=== PATIENT | female | born 1980 | race Caucasian/White ===

== ENCOUNTER 2016-08-08 06:58 | Observation (INO) | payer BC, MEDICAID ==
[~2016-08-08 06:58] MED LIST: Lidocaine 1%/Sod Bicarbonate in NS 8.4% 1 ML Syringe PRN; Sodium Chloride 0.9% 10 ML Syringe FLUSH PRN
--- NOTE | 2016-08-08 07:18 | PCM.PREANE ---
Preanesthetic Assessment - Anesthesia/Transfusion/Family Hx Anesthesia History: Prior Anesthesia Reaction (nausea and vomiting) Family History of Anesthesia Reaction: Yes (Dad has seizures) Transfusion History: No Prior Transfusion(s) - Review of Systems General: No Symptoms Pulmonary: No Symptoms Cardiovascular: No Symptoms Gastrointestinal: No symptoms Neurological: No Symptoms Other: Reports: None - Physical Assessment NPO Status Date: 08/07/16 NPO Status Time: 00:00 Pulse: 73 O2 Sat by Pulse Oximetry: 98 Respiratory Rate: 16 Blood Pressure: 131/90 Temperature: 36.5 C Height: 1.73 m Weight: 85.638 kg ASA Class: 2 Mental Status: Alert & Oriented x3 Airway Class: Mallampati = 1 Dentition: Reports: Normal Dentition Thyro-Mental Finger Breadths: 3 Mouth Opening Finger Breadths: 3 ROM/Head Extension: Full Lungs: Clear to auscultation, Normal respiratory effort Cardiovascular: Regular Rate, Regular Rhythm, No Murmurs - Allergies Allergies/Adverse Reactions: Allergies Allergy/AdvReac Type Severity Reaction Status Date / Time animal dander Allergy allergic Verified 08/07/16 16:08 rhinitis codeine Allergy Rash Verified 08/07/16 15:41 kiwi Allergy asthma Verified 08/07/16 15:41 exacerbation morphine AdvReac Vomiting Verified 08/07/16 16:08 - Anesthesia Plan Pre-Op Medication Ordered: None - Acknowledgements Anesthesia Type Planned: General Anesthesia Pt an Appropriate Candidate for the Planned Anesthesia: Yes Alternatives and Risks of Anesthesia Discussed w Pt/Guardian: Yes Pt/Guardian Understands and Agrees with Anesthesia Plan: Yes PreAnesthesia Questionnaire HEENT History: Reports: Allergic rhinitis, Impaired vision Cardiovascular History: Reports: None Respiratory History: Reports: Asthma Gastrointestinal History: Reports: Other (see below) Other Gastrointestinal History: stomach ulcer Genitourinary History: Reports: Other (see below) [employer] History: Reports: , Other (see below) Other OB/BYN History: bacterial vaginosis, hypermenorrhea, dysmenorrhea, irregular menses Musculoskeletal History: Reports: None Neurological History: Reports: None Psychiatric History: Reports: Anxiety, Depression Endocrine/Metabolic History: Reports: None Hematologic History: Reports: None Immunologic History: Reports: None Oncologic (Cancer) History: Reports: None Dermatologic History: Reports: None - Past Surgical History Head Surgeries/Procedures: Reports: None GI Surgical History: Reports: Appendectomy, Cholecystectomy Female Surgical History: Reports: Tubal ligation - SUBSTANCE USE Smoking Status *Q: Never Smoker Tobacco Use Within Last Twelve Months: No Second Hand Smoke Exposure: No Days Per Week of Alcohol Use: 0 Number of Drinks Per Day: 0 Total Drinks Per Week: 0 Recreational Drug Use History: No - HOME MEDS Home Medications: Home Meds ALPRAZolam [Xanax] 0.25 mg PO Q6H PRN 08/07/16 [History] DULoxetine [Cymbalta] 60 mg PO DAILY 08/07/16 [History] Ferrous Sulfate [Iron] 325 mg PO DAILY 08/07/16 [History] Montelukast [Singulair] 10 mg PO DAILY 08/07/16 [History] Pantoprazole Sodium [Protonix] 40 mg PO DAILY 08/07/16 [History] - CURRENT (IN HOUSE) MEDS Current Meds: Current Medications Lactated Ringer's (Ringers, Lactated) 1,000 mls @ 125 mls/hr IV ASDIRECTED RUDDY Stop: 08/08/16 23:00 Lidocaine/Sodium Bicarbonate (Buffered Lidocaine 1% In Ns 8.4%) 0.25 ml .XX ONETIME PRN PRN Reason: Prior to IV Start Stop: 08/08/16 18:00 Sodium Chloride (Saline Flush) 10 ml FLUSH ASDIRECTED PRN PRN Reason: Keep Vein Open Stop: 08/08/16 18:00
[2016-08-08] MEDS ORDERED: Scopolamine 1.5 MG Transdermal Patch TOP ONE (07:30)
[2016-08-08] MEDS: Lactated Ringers 1,000 ML IV SCH ×5 (07:33→23:39)
[2016-08-08] MEDS ORDERED: fentaNYL 250 MCG/5 ML SDV ONE ×3 (07:40→08:42)
[2016-08-08] MEDS ORDERED: Rocuronium 50 MG/5 ML Vial ONE (07:40)
[2016-08-08] MEDS ORDERED: Ondansetron 4 MG/2 ML SDV ONE (07:40)
[2016-08-08] MEDS ORDERED: Midazolam 1 MG/ML 2 ML SDV ONE (07:40)
[2016-08-08] MEDS ORDERED: Propofol 200 MG/20 ML SDV ONE (07:40)
[2016-08-08] MEDS ORDERED: diphenhydrAMINE 50 MG/ML SDV ONE (07:41)
[2016-08-08] MEDS ORDERED: Dexamethasone 4 MG/ML 5 ML MDV ONE (07:41)
[2016-08-08] MEDS ORDERED: Lidocaine 1% 4 ML ONE (07:41)
[2016-08-08] MEDS: Sodium Chloride 0.9% 50 ML SDV ONE ×2 (08:08→08:14)
[2016-08-08] MEDS: Lidocaine 1% with EPINEPHrine 1:100,000 20 ML MDV ONE ×2 (08:08→08:14)
[2016-08-08] MEDS ORDERED: Lactated Ringers 1,000 ML ONE (08:35)
--- NOTE | 2016-08-08 09:03 | PCM.OPNOTE ---
- General Post-Op/Procedure Note Date of Surgery/Procedure: 08/08/16 Operative Procedure(s): Total vaginal hysterectomy, bilateral salpingectomy ( ovaries not removed.), [id number] Pre Op Diagnosis: Hypermenorrhea, irregular menses, dysmenorrhea, pelvic pain Post-Op Diagnosis: Same Anesthesia Technique: General ET tube Primary Surgeon: Eloy Quesada Secondary Surgeon: Michael Allan Anesthesia Provider: Humphrey Hart Fluid Replacement, Intraop: 1,800 EBL in mLs: 125 Drain/Tube Comments:: None Complications: None Condition: Good Free Text/Narrative:: Patient was transported to operating room #2, and placed under general anesthesia in the low dorsal lithotomy position. Prepared and draped in sterile fashion. Examination under anesthesia revealed. No adnexal masses. Normal-size uterus upper limits of normal size. Timeout performed confirming name, date of , and procedures total vaginal hysterectomy, bilateral salpingectomy, removal of one or both ovaries, possible total, hysterectomy, bilateral salpingectomy, and removal of one or both ovaries.). Total vaginal hysterectomy, bilateral salpingectomy, performed. The patient having been draped and prepared and sterile fashion. SCDs in place functioning. Prior surgery and Ancef 2 g given as previously prior surgery. Milliliters of 0.5% lidocaine injected with epinephrine. A circumferential area around the cervix. Circumscribing the cervix. Posterior colpotomy performed without difficulty. Crossclamping with LigaSure, activating, incising, the uterosacral ligaments, and quarterly was were transected. Proceeding cephalad. Crossclamping, activating, incising, until the entered bluntly was able to be performed and crossclamping. One additional time to complete transection. The uterine vessels. The uterus was inverted posteriorly, crossclamped across the triple pedicle bilaterally, and removed. The pedicle was suture ligated with #1 Vicryl bilaterally. Nicole fixation type suture. The remaining portions of the distal portion of fallopian tube were removed bilaterally by crossclamping, activating LigaSure, and incising, all tissue sent to pathology for tissue evaluation. Sponge, needle, practice with sharp count correct, x2 in the pursestring suture placed on the peritoneal cavity, beginning at 2:00, and proceeding clockwise fashion. Using 0 Monocryl. The pedicles were incorporated extraperitoneally the anterior, posterior vaginal cuff was enclosed running, locking suture of 0 Monocryl. Patient transported post anesthesia care unit in satisfactory condition. No blood transfusion to required
[2016-08-08] MEDS ORDERED: Flumazenil 0.1 MG/ML 5 ML MDV ONE (09:46)
[2016-08-08] MEDS ORDERED: Naloxone 0.4 MG/ML SDV ONE (09:57)
--- NOTE | 2016-08-08 10:10 | PCM.POSTAN ---
POST ANESTHESIA ASSESSMENT - MENTAL STATUS Mental Status: alert, oriented - VITAL SIGNS Pulse Rate: 108 SaO2: 97 Resp Rate: 16 Blood Pressure: 147/94 Temperature: 36.7 C - RESPIRATORY Respiratory Status: respiratory rate WNL, airway patent, O2 saturation stable - CARDIOVASCULAR CV Status: pulse rate WNL, blood pressure stable - GASTROINTESTINAL GI Status: no symptoms - PAIN Pain Score: 0 - POST OP HYDRATION Hydration Status: adequate & stable - OBSERVATIONS Free Text/Narrative:: no anesthesia complications noted
[2016-08-08] MEDS ORDERED: Acetaminophen/oxyCODONE 325-5 MG Tab PO PRN (10:22)
[2016-08-08] MEDS ORDERED: Metoclopramide 10 MG/2 ML SDV IVPUSH ONE (11:15)
[2016-08-08] MEDS ORDERED: Ondansetron 4 MG/2 ML SDV IVPUSH ONE (11:15)
[2016-08-08] MEDS ORDERED: Albuterol 0.083% 2.5 MG/3 ML Neb Soln NEB ONE (11:30)
[2016-08-08] MEDS ORDERED: Ketorolac 30 MG/ML SDV IVPUSH SCH (14:00)
--- NOTE | 2016-08-08 14:03 | PCM.SN ---
- Free Text/Narrative Note: Patient will be placed on observation status because of postoperative hypoxia with sleeping . Continuous pulse oximetry, and also because of acute urinary retention, unable to empty. Bladder completely with bladder scan, showing or 200 mL of urine in the bladder. After completion of voiding will begin Urecholine 10 mg by mouth hourly for total of 5 doses and then by mouth every 6 hours. After that. Patient having noted. Vaginal bleeding. No significant abdominal pain. I talked with and patient and they are in agreement. Vital signs are stable. CBC in a.m.
[2016-08-08] MEDS ORDERED: Ondansetron 4 MG Tab.DIS PO PRN (14:42)
[2016-08-08] MEDS: Acetaminophen/oxyCODONE 325-5 MG Tab PO PRN ×2 (15:48→21:13)
--- NOTE | 2016-08-08 16:17 | PCM.SN ---
- Free Text/Narrative Note: Awake hypoxia better nd weening O2, voided with 148 ml residual. Moving to [facility] from L[facility] PP due to need for PP rooms. Stable, voiced no concerns.
[2016-08-08] MEDS ORDERED: ALPRAZolam 0.25 MG Tab PO PRN (19:06)
[2016-08-09] MEDS: Acetaminophen/oxyCODONE 325-5 MG Tab PO PRN ×2 (01:27→06:29)
[2016-08-09] MEDS ORDERED: Pantoprazole 40 MG Tab.CR PO SCH (07:00)
[2016-08-09] MEDS: Lactated Ringers 1,000 ML IV SCH (07:41)
--- NOTE | 2016-08-09 07:57 | PCM.DCSUM1 ---
Discharge Summary - Hospital Course Free Text/Narrative:: [facility] Post-Op/Procedure Note Patient Name: RENAN BOOTH Date of : 82 Patient Status: Observation Attending Provider: Eloy Quesada Date: 08/08/16 08:59 Initialization Date: 08/08/16 08:59 - General Post-Op/Procedure Note Date of Surgery/Procedure: 08/08/16 Operative Procedure(s): Total vaginal hysterectomy, bilateral salpingectomy ( ovaries not removed.), [id number] Pre Op Diagnosis: Hypermenorrhea, irregular menses, dysmenorrhea, pelvic pain Post-Op Diagnosis: Same Anesthesia Technique: General ET tube Primary Surgeon: Eloy Quesada Secondary Surgeon: Michael Allan Anesthesia Provider: Humphrey Hart Fluid Replacement, Intraop: 1,800 EBL in mLs: 125 Drain/Tube Comments:: None Complications: None Condition: Good Free Text/Narrative:: Patient was transported to operating room #2, and placed under general anesthesia in the low dorsal lithotomy position. Prepared and draped in sterile fashion. Examination under anesthesia revealed. No adnexal masses. Normal-size uterus upper limits of normal size. Timeout performed confirming name, date of , and procedures total vaginal hysterectomy, bilateral salpingectomy, removal of one or both ovaries, possible total, hysterectomy, bilateral salpingectomy, and removal of one or both ovaries.). Total vaginal hysterectomy, bilateral salpingectomy, performed. The patient having been draped and prepared and sterile fashion. SCDs in place functioning. Prior surgery and Ancef 2 g given as previously prior surgery. Milliliters of 0.5% lidocaine injected with epinephrine. A circumferential area around the cervix. Circumscribing the cervix. Posterior colpotomy performed without difficulty. Crossclamping with LigaSure, activating, incising, the uterosacral ligaments, and quarterly was were transected. Proceeding cephalad. Crossclamping, activating, incising, until the entered bluntly was able to be performed and crossclamping. One additional time to complete transection. The uterine vessels. The uterus was inverted posteriorly, crossclamped across the triple pedicle bilaterally, and removed. The pedicle was suture ligated with #1 Vicryl bilaterally. Nicole fixation type suture. The remaining portions of the distal portion of fallopian tube were removed bilaterally by crossclamping, activating LigaSure, and incising, all tissue sent to pathology for tissue evaluation. Sponge, needle, practice with sharp count correct, x2 in the pursestring suture placed on the peritoneal cavity, beginning at 2:00, and proceeding clockwise fashion. Using 0 Monocryl. The pedicles were incorporated extraperitoneally the anterior, posterior vaginal cuff was enclosed running, locking suture of 0 Monocryl. Patient transported post anesthesia care unit in satisfactory condition. No blood transfusion to required Patient referred to observation due to hypoxia when sleeping and inability to ween off O2 in PACU, and acute postop urinary retention. Both resolved overnight , patient weened off O2 and voiding without difficulty. HPI Initial Comments: [facility] Post-Op/Procedure Note Patient Name: RENAN BOOTH Date of : 82 Patient Status: Observation Attending Provider: Eloy Quesada Date: 08/08/16 08:59 Initialization Date: 08/08/16 08:59 - General Post-Op/Procedure Note Date of Surgery/Procedure: 08/08/16 Operative Procedure(s): Total vaginal hysterectomy, bilateral salpingectomy ( ovaries not removed.), [id number] Pre Op Diagnosis: Hypermenorrhea, irregular menses, dysmenorrhea, pelvic pain Post-Op Diagnosis: Same Anesthesia Technique: General ET tube Primary Surgeon: Eloy Quesada Secondary Surgeon: Michael Allan Anesthesia Provider: Humphrey Hart Fluid Replacement, Intraop: 1,800 EBL in mLs: 125 Drain/Tube Comments:: None Complications: None Condition: Good Free Text/Narrative:: Patient was transported to operating room #2, and placed under general anesthesia in the low dorsal lithotomy position. Prepared and draped in sterile fashion. Examination under anesthesia revealed. No adnexal masses. Normal-size uterus upper limits of normal size. Timeout performed confirming name, date of , and procedures total vaginal hysterectomy, bilateral salpingectomy, removal of one or both ovaries, possible total, hysterectomy, bilateral salpingectomy, and removal of one or both ovaries.). Total vaginal hysterectomy, bilateral salpingectomy, performed. The patient having been draped and prepared and sterile fashion. SCDs in place functioning. Prior surgery and Ancef 2 g given as previously prior surgery. Milliliters of 0.5% lidocaine injected with epinephrine. A circumferential area around the cervix. Circumscribing the cervix. Posterior colpotomy performed without difficulty. Crossclamping with LigaSure, activating, incising, the uterosacral ligaments, and quarterly was were transected. Proceeding cephalad. Crossclamping, activating, incising, until the entered bluntly was able to be performed and crossclamping. One additional time to complete transection. The uterine vessels. The uterus was inverted posteriorly, crossclamped across the triple pedicle bilaterally, and removed. The pedicle was suture ligated with #1 Vicryl bilaterally. Nicole fixation type suture. The remaining portions of the distal portion of fallopian tube were removed bilaterally by crossclamping, activating LigaSure, and incising, all tissue sent to pathology for tissue evaluation. Sponge, needle, practice with sharp count correct, x2 in the pursestring suture placed on the peritoneal cavity, beginning at 2:00, and proceeding clockwise fashion. Using 0 Monocryl. The pedicles were incorporated extraperitoneally the anterior, posterior vaginal cuff was enclosed running, locking suture of 0 Monocryl. Patient transported post anesthesia care unit in satisfactory condition. No blood transfusion to required Patient referred to observation due to hypoxia when sleeping and inability to ween off O2 in PACU, and acute postop urinary retention. Both resolved overnight , patient weened off O2 and voiding without difficulty. Brief History: [facility] . Post-Op/Procedure Note. [facility]: [id number]. Date of : 82Patient Status: Observation. Attending Provider: Eloy Quesadaount Number: [id number]. Date: 08/08/16 08:59Initialization Date: 08:59. - General Post-Op/Procedure Note. Date of Surgery/Procedure: . Operative Procedure(s): Total vaginal hysterectomy, bilateral salpingectomy (ovaries not removed.), [id number]. Pre Op Diagnosis: Hypermenorrhea , irregular menses, dysmenorrhea, pelvic pain. Post-Op Diagnosis: Same. Anesthesia Technique: General ET tube. Primary Surgeon: Eloy Quesada. Secondary Surgeon: Michael Allan. Anesthesia Provider: Humphrey Hart. Fluid Replacement, Intraop: 1,800. EBL in mLs: 125. Drain/Tube Comments:: None. Complications: None. Condition: Good. Free Text/Narrative:: Patient was transported to operating room #2, and placed under general anesthesia in the low dorsal lithotomy position. Prepared and draped in sterile fashion. Examination under anesthesia revealed. No adnexal masses. Normal-size uterus upper limits of normal size. Timeout performed confirming name, date of , and procedures total vaginal hysterectomy, bilateral salpingectomy, removal of one or both ovaries, possible total, hysterectomy, bilateral salpingectomy, and removal of one or both ovaries.). Total vaginal hysterectomy, bilateral salpingectomy, performed. The patient having been draped and prepared and sterile fashion. SCDs in place functioning. Prior surgery and Ancef 2 g given as previously prior surgery. Milliliters of 0.5% lidocaine injected with epinephrine. A circumferential area around the cervix. Circumscribing the cervix. Posterior colpotomy performed without difficulty. Crossclamping with LigaSure, activating, incising, the uterosacral ligaments, and quarterly was were transected. Proceeding cephalad. Crossclamping, activating, incising, until the entered bluntly was able to be performed and crossclamping. One additional time to complete transection. The uterine vessels. The uterus was inverted posteriorly, crossclamped across the triple pedicle bilaterally, and removed. The pedicle was suture ligated with #1 Vicryl bilaterally. Nicole fixation type suture. The remaining portions of the distal portion of fallopian tube were removed bilaterally by crossclamping, activating LigaSure, and incising, all tissue sent to pathology for tissue evaluation. Sponge, needle, practice with sharp count correct, x2 in the pursestring suture placed on the peritoneal cavity, beginning at 2:00, and proceeding clockwise fashion. Using 0 Monocryl. The pedicles were incorporated extraperitoneally the anterior , posterior vaginal cuff was enclosed running, locking suture of 0 Monocryl. Patient transported post anesthesia care unit in satisfactory condition. No blood transfusion to required. Patient referred to observation due to hypoxia when sleeping and inability to ween off O2 in PACU, and acute postop urinary retention. Both resolved overnight, patient weened off O2 and voiding without difficulty. - Discharge Data Discharge Date: 08/09/16 Discharge Disposition: Home, Self-Care 01 Condition: Good - Discharge Diagnosis/Problem(s) (1) Hypoxia, sleep related SNOMED Code(s): 61217045 ICD Code: G47.34 - IDIO SLEEP RELATED NONOBSTRUCTIVE ALVEOLAR HYPOVENTILATION Status: Acute Current Visit: Yes (2) Postoperative urinary retention SNOMED Code(s): 078584846 ICD Code: N99.89 - OTH POSTPROCEDURAL COMPLICATIONS AND DISORDERS OF SYS; R33.8 - OTHER RETENTION OF URINE Status: Acute Current Visit: Yes (3) Dysmenorrhea SNOMED Code(s): 281424076 Status: Acute Current Visit: Yes (4) Acute pelvic pain, female SNOMED Code(s): 096134040 Status: Acute Current Visit: Yes - Patient Summary/Data Operative Procedure(s) Performed: Total vaginal hysterectomy, bilateral salpingectomy (ovaries not removed.), [id number] Complications: hypoxia while sleeping and acute urinary retention resolved overnight Hospital Course: uneventful - Patient Instructions Diet: Heart Healthy Diet Driving: Do Not Drive (2 weeks) Showering/Bathing: May Shower, No Tub Bathing/Swimming (6 weeks) Notify Provider of: Fever, Increased Pain, Swelling and Redness, Drainage, Nausea and/or Vomiting - Discharge Plan Prescriptions/Med Rec: oxyCODONE HCl/Acetaminophen [Percocet 5-325 mg Tablet] 1 each PO Q6H #30 tablet Home Medications: Home Meds ALPRAZolam [Xanax] 0.25 mg PO Q6H PRN 08/07/16 [History] DULoxetine [Cymbalta] 60 mg PO DAILY 08/07/16 [History] Ferrous Sulfate [Iron] 325 mg PO DAILY 08/07/16 [History] Montelukast [Singulair] 10 mg PO DAILY 08/07/16 [History] Pantoprazole Sodium [Protonix] 40 mg PO DAILY 08/07/16 [History] oxyCODONE HCl/Acetaminophen [Percocet 5-325 mg Tablet] 1 each PO Q6H #30 tablet 08/08/16 [Rx] Referrals: Eloy Quesada MD [Physician] - (Has appointment in) - Discharge Summary/Plan Comment DC Time >30 min.: No - Patient Data Vitals - Most Recent: Last Vital Signs Temp 98.2 F 08/09/16 04:00 Pulse 66 08/09/16 04:00 Resp 16 08/09/16 06:53 BP 99/43 L 08/09/16 04:00 Pulse Ox 98 08/09/16 04:00 Weight - Most Recent: 194 lb 8 oz I&O - Last 24 hours: Intake & Output 08/08/16 08/09/16 08/09/16 22:59 06:59 14:59 Intake Total 210 650 Output Total 1550 1950 Balance -1340 -1300 Lab Results - Last 24 hrs: Laboratory Results - last 24 hr 08/09/16 Range/Units 06:20 WBC 8.13 (3.98-10.04) K/mm3 RBC 3.64 L (3.98-5.22) M/mm3 Hgb 10.2 L (11.2-15.7) gm/L Hct 31.3 L (34.1-44.9) % MCV 86.0 (79.4-94.8) fl MCH 28.0 (25.6-32.2) pg MCHC 32.6 (32.2-35.5) g/dl RDW Std Deviation 43.0 (36.4-46.3) fL Plt Count 204 (182-369) K/mm3 MPV 10.1 (9.4-12.3) fl Neut % (Auto) 65.1 (34.0-71.1) % Lymph % (Auto) 24.0 (19.3-51.7) % [place] % (Auto) 9.5 (4.7-12.5) % Eos % (Auto) 1.1 (0.7-5.8) Baso % (Auto) 0.2 (0.1-1.2) % Neut # (Auto) 5.29 (1.56-6.13) K/mm3 Lymph # (Auto) 1.95 (1.18-3.74) K/mm3 [place] # (Auto) 0.77 H (0.24-0.36) K/mm3 Eos # (Auto) 0.09 (0.04-0.36) K/mm3 Baso # (Auto) 0.02 (0.01-0.08) K/mm3 Med Orders - Current: Current Medications Alprazolam (Xanax) 0.25 mg PO Q6H PRN PRN Reason: Anxiety Last Admin: 08/08/16 21:14 Dose: 0.25 mg Bethanechol Chloride (Urecholine) 10 mg PO Q6H [facility] Last Admin: 08/09/16 01:27 Dose: 10 mg Lactated Ringer's (Ringers, Lactated) 1,000 mls @ 125 mls/hr IV ASDIRECTED [facility] Last Admin: 08/09/16 07:41 Dose: 125 mls/hr Ondansetron HCl (Zofran Odt) 4 mg PO Q6H PRN PRN Reason: Nausea/Vomiting Oxycodone/Acetaminophen (Percocet 325-5 Mg) 1 tab PO Q4H PRN PRN Reason: Pain (moderate 4-6) Last Admin: 08/09/16 06:29 Dose: 1 tab Pantoprazole Sodium (Protonix) 40 mg PO DAILY@0700 [facility] Last Admin: 08/09/16 07:02 Dose: 40 mg Discontinued Medications Albuterol (Proventil Neb Soln) 2.5 mg NEB ONETIME ONE Stop: 08/08/16 11:31 Last Admin: 08/08/16 11:35 Dose: 2.5 mg Bethanechol Chloride (Urecholine) 10 mg PO Q1H [facility] Stop: 08/08/16 18:43 Last Admin: 08/08/16 20:14 Dose: Not Given Dexamethasone (Dexamethasone) Confirm Administered Dose 20 mg .ROUTE .STK-MED ONE Stop: 08/08/16 07:42 Diphenhydramine HCl (Benadryl) Confirm Administered Dose 50 mg .ROUTE .STK-MED ONE Stop: 08/08/16 07:42 Fentanyl (Sublimaze) Confirm Administered Dose 250 mcg .ROUTE .STK-MED ONE Stop: 08/08/16 07:41 Fentanyl (Sublimaze) Confirm Administered Dose 250 mcg .ROUTE .STK-MED ONE Stop: 08/08/16 08:29 Fentanyl (Sublimaze) Confirm Administered Dose 250 mcg .ROUTE .STK-MED ONE Stop: 08/08/16 08:43 Flumazenil (Romazicon) Confirm Administered Dose 0.5 mg .ROUTE .STK-MED ONE Stop: 08/08/16 09:47 Lactated Ringer's (Ringers, Lactated) 1,000 mls @ 125 mls/hr IV ASDIRECTED RUDDY Stop: 08/08/16 23:00 Last Admin: 08/08/16 12:11 Dose: 125 mls/hr Lidocaine HCl (Xylocaine-Mpf 1%) Confirm Administered Dose 4 mls @ as directed .ROUTE .STK-MED ONE Stop: 08/08/16 07:42 Lactated Ringer's (Ringers, Lactated) Confirm Administered Dose 1,000 mls @ as directed .ROUTE .STK-MED ONE Stop: 08/08/16 08:36 Ketorolac Tromethamine (Toradol) 30 mg IVPUSH ONETIME [facility] Stop: 08/08/16 23:59 Lidocaine/Epinephrine (Xylocaine 1% With Epinephrine 1:100,000) Confirm Administered Dose 20 ml .ROUTE .STK-MED ONE Stop: 08/08/16 07:14 Last Admin: 08/08/16 08:08 Dose: 5 ml Lidocaine/Sodium Bicarbonate (Buffered Lidocaine 1% In Ns 8.4%) 0.25 ml .XX ONETIME PRN PRN Reason: Prior to IV Start Stop: 08/08/16 18:00 Last Admin: 08/08/16 07:30 Dose: 0.25 ml Metoclopramide HCl (Reglan) 10 mg IVPUSH ONETIME ONE Stop: 08/08/16 11:16 Last Admin: 08/08/16 16:51 Dose: Not Given Midazolam HCl (Versed 1 Mg/Ml) Confirm Administered Dose 2 mg .ROUTE .STK-MED ONE Stop: 08/08/16 07:41 Naloxone HCl (Narcan) Confirm Administered Dose 0.4 mg .ROUTE .STK-MED ONE Stop: 08/08/16 09:58 Ondansetron HCl (Zofran) Confirm Administered Dose 4 mg .ROUTE .STK-MED ONE Stop: 08/08/16 07:41 Ondansetron HCl (Zofran) 4 mg IVPUSH ONETIME ONE Stop: 08/08/16 11:16 Last Admin: 08/08/16 11:15 Dose: 4 mg Oxycodone/Acetaminophen (Percocet 325-5 Mg) 1 tab PO Q6H PRN PRN Reason: Pain Last Admin: 08/08/16 11:23 Dose: 1 tab Propofol (Diprivan 20 Ml) Confirm Administered Dose 200 mg .ROUTE .STK-MED ONE Stop: 08/08/16 07:41 Rocuronium [place] (Zemuron) Confirm Administered Dose 50 mg .ROUTE .STK-MED ONE Stop: 08/08/16 07:41 Scopolamine (Transderm-Scop) 1.5 mg TOP ONETIME ONE Stop: 08/08/16 07:31 Last Admin: 08/08/16 07:30 Dose: 1.5 mg Sodium Chloride (Saline Flush) 10 ml FLUSH ASDIRECTED PRN PRN Reason: Keep Vein Open Stop: 08/08/16 18:00 Sodium Chloride (Normal Saline) Confirm Administered Dose 50 ml .ROUTE .STK-MED ONE Stop: 08/08/16 07:14 Last Admin: 08/08/16 08:08 Dose: 15 ml *Q Meaningful Use (DIS) - VTE *Q VTE Criteria *Q: - Stroke *Q Stroke Criteria *Q: - AMI *Q AMI Criteria *Q:
[2016-08-09 08:04] VITALS: BP 123/71
--- NOTE | 2016-08-09 08:49 | PCM48HPAN ---
Post Anesthesia Note - EVALUATION WITHIN 48HRS OF ANESTHETIC Vital Signs in Normal Range: Yes Patient Participated in Evaluation: No (patient was discharged) Respiratory Function Stable: Yes Airway Patent: Yes Cardiovascular Function Stable: Yes Hydration Status Stable: Yes Pain Control Satisfactory: Yes Nausea and Vomiting Control Satisfactory: Yes Mental Status Recovered: Yes (reviewed chart)
== END 2016-08-09 08:25 | disposition home or self-care (01) ==
LOC: JD.SDS 06:58 → MERGE 06:58 → JD.OB 13:54 → JD.MS 16:23
PROVIDERS: ADMIT Obstetrics & Gynecology; ATTEND Obstetrics & Gynecology
PROC: 0UT97ZZ Resection of Uterus, Via Natural or Artificial Opening (ICD-10-PCS; principal; 2016-08-08)
PROC: 0UTC7ZZ Resection of Cervix, Via Natural or Artificial Opening (ICD-10-PCS; 2016-08-08)
PROC: 0UT77ZZ Resection of Bilateral Fallopian Tubes, Via Natural or Artificial Opening (ICD-10-PCS; 2016-08-08)
DX: N92.0 Excessive and frequent menstruation with regular cycle (principal); N94.6 Dysmenorrhea, unspecified; N92.6 Irregular menstruation, unspecified; R10.2 Pelvic and perineal pain; N72 Inflammatory disease of cervix uteri; G47.34 Idiopathic sleep related nonobstructive alveolar hypoventilation; J30.9 Allergic rhinitis, unspecified; F41.9 Anxiety disorder, unspecified; J45.909 Unspecified asthma, uncomplicated; Z88.6 Allergy status to analgesic agent; Z91.018 Allergy to other foods; Z91.09 Other allergy status, other than to drugs and biological substances; Z79.899 Other long term (current) drug therapy
CPT/HCPCS: 36415; 58262; 85025; 88307; 94762; A9270; J1100; J1200; J2250; J2310; J2405; J3010; J7120; 00944; G0378; J2704; J3490